=== PATIENT | female | born 1940 | race Caucasian/White ===

== ENCOUNTER 2024-11-19 10:02 | Outpatient (AMB) | payer MEDICARE, SELFPAY ==
--- NOTE | 2024-11-19 10:28 | MHC.OFFVIS ---
Vital Signs 11/19/24 10:36 BP 156/80 H Blood Pressure Location Rt brachial Position Sitting Pulse 72 Pulse Source Pulse Oximeter Pulse Oximetry (%) 97 Oxygen Delivery Method Room Air Intake Visit Reasons: ENP - Daytime Somnolence Intake Note: Patient presents PICU NURSE Somnolence- sleeps all day stays up all night. States she gets headaches every morning. Languages And Literature Instructor Required: No Accompanied by: Daughter Allergies Influenza Virus Vaccines Allergy (Unknown, Verified 11/19/24 10:28) Unknown lisinopril Allergy (Unknown, Verified 11/19/24 10:28) Unknown medroxyprogesterone Allergy (Unknown, Verified 11/19/24 10:28) Unknown HPI Comments Details: 84 year old r. handed female with hypertension referred to us for a new patient insomnia evaluation. She is here with her daughter in law Catalina who helps with history. Past Med Hx: Dec 2022 multiple TIAs, and altered mental status, she was taken to [facility], then [facility] and had rehabilitative services.She didn't recognize anyone, or knew where she was then became combative, no recollection of orientation, time, then completed rehab and was started on Keppra 500mg BID for seizures. Denies history of seizure like activity since, though she is prone to UTIs and AMS with onset of UTIs she gets triggered then cognitively declines. Stable and benign Meningioma, on MRI, Request imaging from [facility], or [facility]. She walks around all night and watches tv at 2am, she has trouble falling asleep at night. She takes long naps during the daytime as she is chronically fatigued during the day. Today she c/o daily morning headaches in the morning, which subside with 2-tylenol 325mg po BID. She lives in [facility], an assisted living facility in [place], prior to this she was in an independent living facility. She has orthostatic hypotension, from standing to sitting her bp usually drops 30mmHg systolicaly, usually 178/70 to 150s/80, and this is her baseline. She is on Nifedipine and Hydralazine to manage the BP, she sings happy birthday, in between positional changes to mindfully slow her movements. We reviewed diet and lifestyle changes to improve bp, which will lessen the burden of headaches. Given her h/o asthma and allergies, she takes albuterol TID and Wixela BiD. Her memory is poor, she recently had a Neurocognitive evaluation and was diagnosed with dementia and needs constant redirection. She will start PT 2-x a week, due to instability of gait, balance, and vertigo. [facility] Medical History (Updated 11/23/24 @ 22:36 by Carmen Elias PA-C) History of common carotid artery stent placement Dementia Obese IBS (irritable bowel syndrome) Heart murmur Gallbladder polyp Ex-smoker Chronic cough Carotid artery disease Hydrocephalus PVD (peripheral vascular disease) HTN (hypertension) Asthma Migraine Hypercholesteremia Osteoporosis Diverticulosis Fibroid, uterine DM type 2 (diabetes mellitus, type 2) Colonic polyp Osteoarthritis cervical spine Edema of both legs Bilateral carotid artery stenosis Meningioma Surgical History (Updated 11/12/24 @ 15:41 by IKE Bills) H/O rectal polypectomy Hx of cholecystectomy Hx of appendectomy S/P tonsillectomy S/P laparoscopic cholecystectomy History of right-sided carotid endarterectomy Family History (Updated 11/12/24 @ 15:42 by IKE Bills) Mother Heart disease Father TIA (transient ischemic attack) Physical Exam Vital Signs: Last Vital Signs Pulse 72 11/19/24 10:36 BP 156/80 H 11/19/24 10:36 Pulse Ox 97 11/19/24 10:36 Oxygen Delivery Method Room Air 11/19/24 10:36 pleasant Const General: cooperative, comfortable and no acute distress Orientation/consciousness: patient oriented x3 HEENT Teeth and gingiva: other (mallampti score of 3) Eyes Pupils: Equal, round and reactive pupils present Neck Neck: Yes full ROM Resp Effort & Inspection: normal respiratory effort and able to speak in complete sentences Neuro Other: uses her wheel chair as she has foot pain bilaterally upon ambulation. General: patient oriented x3 and moves all extremities Cranial nerves: Yes Facial sensation intact/muscles of mastication intact, Yes Equal, round and reactive pupils present, Yes Normal facial strength present, Yes Midline tongue present, Yes Ability to bilaterally rotate head present and Yes Ability to bilaterally elevate shoulders present Gait exam (Neuro): Other gait observations present (uses a wheel chair) Motor exam (neuro): Abnormal motor strength present, Tremors during motor activity present and Abnormal muscle tone present Deep tendon reflexes (DTR's): Right triceps reflex intensity grade: 2+, Left triceps reflex intensity grade: 2+, Rt Biceps (C5, C6): 2+, Left biceps reflex intensity grade: 2+, Right brachioradialis reflex intensity grade: 2+, Left brachioradialis reflex intensity grade: 2+, Right patellar reflex intensity grade: 2+, Left patellar reflex intensity grade: 2+, Right ankle reflex intensity grade: 2+ and Left ankle reflex intensity grade: 2+ Coordination: [id number] test normal Psych Speech and movement: Normal speech and movement present Affect: normal affect Attitude: cooperative Thought process: Normal thought process present Thought content: Normal thought content present Results Reviewed Results Reviewed: AM Medical Referral and Report 08/2024 [facility]. Assessment & Plan Assessment & Plan (1) Insomnia: Comment: PSG Code(s): G47.00 - Insomnia, unspecified Category: Medical Qualifiers: Insomnia type: due to medical condition Qualified Code(s): G47.01 - Insomnia due to medical condition (2) Cognitive decline: Comment: Due to Vascular (TIA) - likely will MRI. Code(s): R41.89 - Other symptoms and signs involving cognitive functions and awareness Category: Medical (3) Persistent headaches: Comment: due to orhtostatic hypotension, will f/u with pcp. Code(s): R51.9 - Headache, unspecified Category: Medical (4) Excessive daytime sleepiness: Code(s): G47.19 - Other hypersomnia Category: Medical Plan PSG to evaluate sleep difficulties and insomnia Start 5 mg of melatonin if unable to sleep at night, Cognitive Decline Sun downing or aggressive behavior will monitor and will start her on mirtazapine, (though she is concerned about weight gain) PT with [facility]. F/u in 3 months Orders: Orders RT PSG in-lab sleep study Today G47.01 - Insomnia due to medical condition, G47.19 - Other hypersomnia Medications: New melatonin 5 mg po daily 3 hours prior to bedtime to induce onse of sleep. 5 mg PO BEDTIME PRN 30 tabs 0RF sleep 30 days MDD 5mg G47.00 - Insomnia, unspecified Patient Instructions: Sleep Hygiene provided: set a scheduled bedtime and wake time to help regulate the circadian rhythm and balance the release of pituitary hormones. Sleep in a dark room, temperatures below 68 degrees, and no devices n bed. Limit caffeinated products 6 hours prior to bed, and limit fluids 2-4 hours prior to bed. Gentle night yoga, diffusing essential oils, and playing soft music can be relaxing. Will evaluate sleep with inlab study, PSG. and Start Melatonin, for UTIs drink 160z of water as tolerated. Requested MRI and records of TIA and neurocognitive evaluation from [facility]. Coding Level of Care Code New Pt Level 4 (13390) Complex EM visit Add On G2211 Diagnoses Insomnia due to medical condition G47.01 Insomnia type: due to medical condition Cognitive decline R41.89 Persistent headaches R51.9 Excessive daytime sleepiness G47.19 Time Spent (min) 40 Comment evaluation sleep and headaches with cognitive decline
[2024-11-19 10:36] VITALS: BP 156/80; PULSE 72; O2SAT 97
--- OUTSIDE RECORDS SUMMARY | 2024-11-19 10:46 | XMS_ITS | Clinical Summary ---
Author Organization [facility] Address [address] [place] [address] Phone Care Team Providers Care Adjunct Faculty Instructor Name Role Phone Jaskaran Mendez MD Primary Care Provider [phone] Allergies Active Allergy Reactions Criticality Noted Date Comments Influenza Virus Vaccine 01/10/2021 Lisinopril Swelling 10/16/2022 Prednisone 10/13/2020 Progesterone Other (see comments) 05/16/2021 Medications amLODIPine (NORVASC) 10 MG tablet 1 Active atorvastatin (LIPITOR) 40 MG tablet 40 mg 1 Active FLUoxetine (PROzac) 20 MG capsule 10 mg 1 Active montelukast (SINGULAIR) 10 MG tablet 1 Active acetaminophen (TYLENOL 8 HOUR) 650 MG 8 hr tablet Take 650 mg by mouth every 8 (eight) hours if needed for mild pain Do not crush, chew, or split. Active albuterol HFA (PROVENTIL HFA;VENTOLIN HFA) 108 (90 Base) MCG/ACT inhaler Inhale 2 puffs every 4 (four) hours if needed for wheezing Active aspirin (ST COLT) 81 MG EC tablet Take 81 mg by mouth 1 (one) time each day Active cholecalciferol (VITAMIN D-3) 125 MCG (5000 UT) capsule Take 5,000 Units by mouth 1 (one) time each day Active oxybutynin XL (DITROPAN-XL) 5 MG 24 hr tablet Take 5 mg by mouth in the morning and 5 mg in the evening. Do not crush, chew, or split. . Active pantoprazole (PROTONIX) 40 MG EC tablet Take 40 mg by mouth 1 (one) time each day before breakfast Do not crush, chew, or split. Active levETIRAcetam (KEPPRA) 500 MG tablet Take 500 mg by mouth in the morning and 500 mg in the evening. Active Active Problems Problem Noted Date Diagnosed Date Disorder of carotid artery 05/24/202305/24 Near syncope 02/27/2023 Orthostatic hypotension 10/16/2022 Cerebral atherosclerosis 06/20/2022 Chronic kidney disease 10/13/2020 Essential (primary) hypertension 10/13/2020 Immunizations Immunization Administration Dates Next Due Moderna SARS-COV-2 06/21/2020 Pfizer SARS-COV-2 03/02/2021 Family History Medical History Relation Comments Heart disease Father Stroke Mother Cancer Mother's Sister Cancer Sister Relation Status Comments Father Mother Mother's Sister Sister Social History Tobacco Use Types Packs/Day Years Used Date Smoking Tobacco: Never Smokeless Tobacco: Never Tobacco Cessation:Counseling Given: No Alcohol Use Standard Drinks/Week Comments Never 0 (1 standard drink = 0.6 oz pur e alcohol) Comments Unknown Sex and Gender Information Value Date Recorded Sex Assigned at Not on file Legal Sex Female 9:44 AM EDT Gender Identity Not on file Sexual Orientation Not on file Last Filed Vital Signs Vital Sign Reading Time Taken Comments Blood Pressure 156/64 02/27/2023 8:34 AM EDT Pulse 73 02/27/2023 8:34 AM EDT Temperature - - Respiratory Rate 22 10/30/2022 1:55 PM EDT Oxygen Saturation 97% 02/27/2023 8:34 AM EDT Inhaled Oxygen Concentration - - Weight 73.8 kg (162 lb 9.6 oz) 02/27/2023 8:34 A M EDT Height 152.4 cm (5') 05/16/2021 3:14 PM EST Body Mass Index 31.76 05/16/2021 3:14 PM EST Plan of Treatment Health Maintenance Due Date Last Done Comments Pneumococcal Vaccine: 50+ Ye ars (1 of 2 - PCV) 1959 Hepatitis B Vaccine Aged Out No longe r eligible based on patient's age to complete this topic Insurance [facility] Care Teams Adjunct Faculty Instructor Relationship Specialty Start Date End Date Jaskaran Mendez MD PCP - General Internal Medicine 05/16/21
== END 2024-11-19 11:33 | disposition home or self-care (01) ==
PROVIDERS: PCP Internal Medicine; Visit Provider Physician Assistant Medical
DX: G47.01 Insomnia due to medical condition (principal); R41.89 Other symptoms and signs involving cognitive functions and awareness; R51.9 Headache, unspecified; G47.19 Other hypersomnia
CPT/HCPCS: 99204; G2211

== ENCOUNTER → 2024-11-19 10:02 | Outpatient (BNVA) | payer MEDICARE, SELFPAY | PROVIDERS: PCP Internal Medicine; Visit Provider Physician Assistant Medical | DX: G47.01 Insomnia due to medical condition (principal); R41.89 Other symptoms and signs involving cognitive functions and awareness; R51.9 Headache, unspecified; G47.19 Other hypersomnia | CPT/HCPCS: 99202 ==

== ENCOUNTER → 2025-01-02 19:30 | Outpatient (REF) | payer MEDICARE, SELFPAY ==
--- OUTSIDE RECORDS SUMMARY | 2025-01-02 21:55 | XMS_ITS | Clinical Summary ---
Author Organization [facility] Address [address] [place] [address] Phone Care Team Providers Care Inseamer Name Role Phone Jaskaran Mendez MD Primary Care Provider Allergies Active Allergy Reactions Criticality Noted Date [...] patient's age to complete this topic Insurance [facility] Care Teams Inseamer Relationship Specialty Start Date End Date Jaskaran Mendez MD PCP - General Internal Medicine 05/16/21
== END ==
LOC: HO.SL 19:30
PROVIDERS: PCP Internal Medicine; Visit Provider Physician Assistant Medical
DX: Z13.89 Encounter for screening for other disorder (principal)

== ENCOUNTER → 2025-01-02 20:40 | Outpatient (BNV) | payer MEDICARE, SELFPAY | PROVIDERS: PCP Internal Medicine; Visit Provider Psychiatry & Neurology Neurology | DX: G47.33 Obstructive sleep apnea (adult) (pediatric) (principal) | CPT/HCPCS: 95810 ==

== ENCOUNTER 2025-02-18 09:58 | Outpatient (AMB) | payer MEDICARE, SELFPAY ==
--- NOTE | 2025-02-18 10:25 | A.OFFVIS_ITS ---
Vital Signs 02/18/25 10:34 Height 5 ft Weight 161 lb 2 oz BMI 31.5 BP 138/60 Blood Pressure Location Lt brachial Position Sitting Pulse 72 Pulse Source Pulse Oximeter Pulse Oximetry (%) 94 Intake Visit Reasons: 3mnth follow up Intake Note: Patient presents follow up Insomnia medication. PSG in chart(AHI-6, MAC-85%. APAP 5-20cm). Looking to see if can get oral appliance rather than CPAP. Accompanied by: Daughter Allergies Influenza Virus Vaccines Allergy (Unknown, Verified 02/18/25 10:29) Unknown lisinopril Allergy (Unknown, Verified 02/18/25 10:) Unknown medroxyprogesterone Allergy (Unknown, Verified 02/18/25 10:) Unknown HPI Comments Details: 84 year old r. handed female with hypertension referred to us for an evaluation of her insomnia. She is here with her daughter in law Catalina who helps with history. PSG reviewed with pt today, her AHI is 6/hr and oxygen nadirs to 83%, she has frequent periodic limb movements which cause her to have multiple night time arousals and sleep disruptions, will start her on APAP 5-20cm H20 and monitor for compliance. Past Med Hx: Dec 2022 multiple TIAs, and altered mental status, she was taken to [facility], [facility] and had rehabilitative services.She didn't recognize anyone, didn't know where she was became combative, with no recollection of orientation of time, person or place. She was started on Keppra 500mg po BID for seizures and after completion of rehab she was sent home. Today she denies history of seizure like activity since, though she is prone to UTIs and AMS with onset of UTIs she gets triggered then declines cognitively. She also has a h/o stable, benign Meningioma on MRI. She always falls backwards, during the last week of Jan. she fell while opening her blinds she fell onto her carpeted floor, no injuries were sustained. She is looking forward to moving to [facility] in [facility] on Mar 19 where she will have daily musical entertainment and better food and a callisthenics instructor who will be her neighbor there holding mass. She looks forward to seeing [employer] there. She usually goes to sleep at 10pm, and is looking forward to seeing Juju the director, and her Dr. May available to her. She walks around all night and watches tv until about 2am, she has difficulty falling asleep. She takes long naps during the day as she is chronically fatigued during the day. We speak about switching this behavior and changing to normal circadian rhythm today with the use of CPAP therapy. Today she c/o daily morning headaches in the morning, which subside with 2 tablets of otc -tylenol 325mg. She has orthostatic hypotension, from sitting to standing her bp usually drops 30mmHg systolic, usually 178/70 to 150s/80, and this is her baseline. She is taking Nifedipine and Hydralazine to manage BP fluctuations. She sings happy birthday , in between positional changes to mindfully slow her movements. We reviewed diet and lifestyle changes to improve BP today as this will lessen the burden of headaches, increase water intake, walking daily with rollator. She has a h/o asthma and allergies, she takes albuterol TID and Wixela BiD. 150/50 to 250/50 along with Fluticasone for allergies. Her memory is poor, she recently had a neuro-cognitive evaluation, she was diagnosed with dementia and needs constant repetition with redirection. She will start PT 2-x a week, due to instability of gait, balance, and vertigo at her new place. Her diet is stable, though has BM every other day, she has diarrhea, and can have stiff stools, she takes culterrelle when constipated. [facility] Medical History History of common carotid artery stent placement Dementia Obese IBS (irritable bowel syndrome) Heart murmur Gallbladder polyp Ex-smoker Chronic cough Carotid artery disease Hydrocephalus PVD (peripheral vascular disease) HTN (hypertension) Asthma Migraine Hypercholesteremia Osteoporosis Diverticulosis Fibroid, uterine DM type 2 (diabetes mellitus, type 2) Colonic polyp Osteoarthritis cervical spine Edema of both legs Bilateral carotid artery stenosis Meningioma Surgical History H/O rectal polypectomy Hx of cholecystectomy Hx of appendectomy S/P tonsillectomy S/P laparoscopic cholecystectomy History of right-sided carotid endarterectomy Family History Mother Heart disease Father TIA (transient ischemic attack) Physical Exam Vital Signs: Last Vital Signs Pulse 72 02/18/25 10:34 BP 138/60 02/18/25 10:34 Pulse Ox 94 02/18/25 10:34 BMI result Body Mass Index 31.5 pleasant Const General: cooperative, comfortable and no acute distress Orientation/consciousness: patient oriented x3 Limitations: wheelchair HEENT Teeth and gingiva: other (mallampti score of 3) Eyes Pupils: Equal, round and reactive pupils present Neck Neck: Yes full ROM Resp Effort & Inspection: normal respiratory effort and able to speak in complete sentences Neuro Other: uses her wheel chair as she has foot pain bilaterally upon ambulation, compression stockings not on today. General: patient oriented x3 and moves all extremities Cranial nerves: Yes Facial sensation intact/muscles of mastication intact, Yes Equal, round and reactive pupils present, Yes Normal facial strength present, Yes Midline tongue present, Yes Ability to bilaterally rotate head present and Yes Ability to bilaterally elevate shoulders present Gait exam (Neuro): Other gait observations present (uses a wheel chair) Motor exam (neuro): Abnormal motor strength present, Tremors during motor activity present and Abnormal muscle tone present Coordination: [id number] test normal Psych Speech and movement: Normal speech and movement present Affect: normal affect Attitude: cooperative Thought process: Normal thought process present Thought content: Normal thought content present Assessment & Plan Assessment & Plan (1) JESUS (obstructive sleep apnea): Code(s): G47.33 - Obstructive sleep apnea (adult) (pediatric) Category: Medical (2) Insomnia: Comment: PSG Code(s): G47.00 - Insomnia, unspecified Category: Medical Qualifiers: Insomnia type: due to medical condition Qualified Code(s): G47.01 - Insomnia due to medical condition (3) RLS (restless legs syndrome): Code(s): G25.81 - Restless legs syndrome Category: Medical (4) Periodic limb movements of sleep: Code(s): G47.61 - Periodic limb movement disorder Category: Medical (5) Cognitive decline: Comment: Due to Vascular (TIA) - likely will MRI. Code(s): R41.89 - Other symptoms and signs involving cognitive functions and awareness Category: Medical (6) Persistent headaches: Comment: due to orhtostatic hypotension, will f/u with pcp. Code(s): R51.9 - Headache, unspecified Category: Medical (7) Excessive daytime sleepiness: Code(s): G47.19 - Other hypersomnia Category: Medical Plan PSG reviewed with pt today will start her on cpap [id number] and monitor her for compliance, as this will improve her circadian rhythm and regulate her sleep cylces. rx to [facility] Cognitive Decline Sun downing or aggressive behavior will monitor and will start her on mirtazapine, (though she is concerned about weight gain) Frequent Limb Movements will start her on gabapentin very low dose of 100 mg po daily to help induce sleep. Pt education provided. Start 5 mg of melatonin if unable to sleep at night, Continue PT at your living facility 2x per week. Carotid artery r. side plaque - vascular services, CTscan- not possible due to Renal DrJoana Renal artery US, will f/u w/ pt. Labs requested from [facility] and [facility] 3 month f/u Medications: New gabapentin 100 mg PO BEDTIME 90 caps 2RF PLMD 3 months MDD 100mg G47.01 - Insomnia due to medical condition, G47.61 - Periodic limb movement disorder Patient Instructions: Sleep Hygiene provided: set a scheduled bedtime and wake time to help regulate the circadian rhythm and balance the release of pituitary hormones. Sleep in a dark room, temperatures below 68 degrees, and no devices n bed. Limit caffeinated products 6 hours prior to bed, and limit fluids 2-4 hours prior to bed. Gentle night yoga, diffusing essential oils, and playing soft music can be relaxing. Coding Level of Care Code Est Pt Level 4 (52288) Complex EM visit Add On G2211 Diagnoses JESUS (obstructive sleep apnea) G47.33 Insomnia due to medical condition G47.01 Insomnia type: due to medical condition RLS (restless legs syndrome) G25.81 Periodic limb movements of sleep G47.61 Cognitive decline R41.89 Persistent headaches R51.9 Excessive daytime sleepiness G47.19
[2025-02-18 10:34] VITALS: BP 138/60; PULSE 72; O2SAT 94; BMI 31.5
== END 2025-02-18 11:28 | disposition home or self-care (01) ==
LOC: HO.HSMC 09:59
PROVIDERS: PCP Internal Medicine; Visit Provider Physician Assistant Medical
DX: G47.33 Obstructive sleep apnea (adult) (pediatric) (principal); G47.01 Insomnia due to medical condition; G25.81 Restless legs syndrome; G47.61 Periodic limb movement disorder; R41.89 Other symptoms and signs involving cognitive functions and awareness; R51.9 Headache, unspecified; G47.19 Other hypersomnia
CPT/HCPCS: 99214; G2211

== ENCOUNTER → 2025-02-18 09:58 | Outpatient (BNVA) | payer MEDICARE, SELFPAY | PROVIDERS: PCP Internal Medicine; Visit Provider Physician Assistant Medical | DX: G47.33 Obstructive sleep apnea (adult) (pediatric) (principal); G47.01 Insomnia due to medical condition; G25.81 Restless legs syndrome; G47.61 Periodic limb movement disorder; G47.19 Other hypersomnia; R41.89 Other symptoms and signs involving cognitive functions and awareness; R51.9 Headache, unspecified | CPT/HCPCS: 99212 ==